=== PATIENT | male | born 1945 | race Caucasian/White ===

== ENCOUNTER 2017-05-17 02:03 | Inpatient (IN) | payer MEDICARE, BC ==
[2017-05-17 02:38] LABS: #Basophils 0.1 thou/uL (0.0-0.2); #Eosinphils 0.4 thou/uL (0.0-0.7); #Lymphocytes 2.6 thou/uL (1.20-3.40); #Monocytes 0.8 thou/uL (0.11-0.59); #Neutrophils 6.9 thou/uL (1.40-6.50); %Basophils 0.7 % (0.0-1.0); %Eosinophils 3.6 % (0.0-10.0); %Lymphocytes 24.4 % (21.0-51.0); %Monocytes 7.5 % (0.0-10.0); Hematocrit 48.5 % (42.0-52.0); Mean Platelet Volume 8.7 fL (7.4-10.4); Red Blood Cell (RBC) Count 5.26 mill/uL (4.70-6.10); White Blood Cell (WBC) Count 10.8 thou/uL (4.8-10.8)
[2017-05-17 02:48] LABS: ALT (SGPT) 18 U/L (8-55); AST (SGOT) 14 U/L (5-34); Alkaline Phosphatase 74 U/L (40-150); Anion Gap 13 mmol/L (10-20); BUN (Urea Nitrogen) 21 mg/dL (8.4-25.7); Bilirubin, Total 0.3 mg/dL (0.2-1.2); Calc. Creatinine Clearance 0 mL/min (70-130); Carbon Dioxide 23 mmol/L (23-31); Chloride 106 mmol/L (98-107); Estimated GFR-MDRD 58; Globulin 3.2 g/dL (2.4-3.5); Protein, Total 7.4 g/dL (5.8-8.1)
[2017-05-17 02:52] LABS: PTT 27.2 SEC (22.9-36.1); Prothrombin Time 12.7 SEC (12.0-14.7); Troponin I Less than 0.010 ng/mL (< 0.028)
[2017-05-17 03:08] LABS: Acetaminophen Less than 6.0 mcg/mL (10.0-30.0); Salicylate Less than 8.0 mg/dL (15.0-30.0)
[2017-05-17 03:36] LABS: Amphetamine Not Detected (NotDetected); Methadone Not Detected (NotDetected); Methamphetamine Not Detected (NotDetected)
[2017-05-17 03:37] LABS: Bilirubin Negative (Negative); Blood, Urine Negative (Negative); Glucose, Urine (Dipstick) Negative (Negative); Ketone, Urine Negative (Negative); Nitrite Negative (Negative); Protein, Urine (Dipstick) Negative (Neg-Trace); Urobilinogen 0.2 mg/dL (0.2-1.0)
[2017-05-17] MEDS ORDERED: Labetalol HCl 100 MG/20 ML VIAL SLOW IVP PRN (04:17)
[2017-05-17] MEDS: Sodium Chloride 0.9% 1,000 ML IV SCH ×2 (05:11→15:42)
[2017-05-17 05:44] LABS: Troponin I Less than 0.010 ng/mL (< 0.028)
--- NOTE | 2017-05-17 07:51 | CT ---
PRELIMINARY REPORT/[facility]/EMERGENCY AFTER HOURS PROCEDURE: Addendum created by Miguel Rivas MD on 05/17/2017 2:27 AM Central Time ([place]) Findings discussed with Nilesh Zapata MD at time of interpretation. Initial Report created on 05/17/2017 2:20 AM Central Time ([place]) EXAM: CT Head Without Intravenous Contrast EXAM DATE/TIME: Exam ordered 05/17/2017 2:06 AM CLINICAL HISTORY: 72 years old, male; Signs and symptoms; Altered mental status/memory loss; Confusion or disorientati on; Patient HX: Stroke alert TECHNIQUE: Axial computed tomography images of the head/brain without intravenous contrast. COMPARISON: No relevant prior studies available. FINDINGS: Brain: Mild generalized volume loss of the brain. No hemorrhage. No significant white matter disease. Ventricles: Unremarkable. No ventriculomegaly. Bones/joints: Unremarkable. No acute fracture. Soft tissues: Unremarkable. Sinuses: Unremarkable as visualized. No acute sinusitis. Mastoid air cells: Unremarkable as visualized. No mastoid effusion. Other findings: There is a small well-demarcated area of decreased attenuation in in the left pariet aloccipital region. IMPRESSION: There is a small well-demarcated area of decreased attenuation in in the left parietal-occipital reg ion, very suspicious for early subacute infarction. In the absence of prior studies, a small area of gliosis/encephalomalacia is not excluded but is less likely. Thank you for allowing us to participate in the care of your patient. Dictated and Authenticated by: Miguel Rivas MD 05/17/2017 2:20 AM Central Time ([place]) FINAL REPORT EMERGENT AFTER HOURS CT HEAD WITHOUT IV CONTRAST: 05/17/2017 HISTORY: Right-sided weakness with no appetizer packer strength. Slurred speech and confusion. COMPARISON: None available. IMPRESSION: 1. Well-demarcated area of decreased attenuation in the left parietal-occipital lobe likely related to an area of infarction which may be more subacute in nature. 2. No intraparenchymal or extraaxial hemorrhage. 3. Findings are in agreement with preliminary report by [facility]. POS: [facility]
[2017-05-17] MEDS ORDERED: Aspirin 81 mg Enteric Coated Tablet PO SCH (09:00)
--- NOTE | 2017-05-17 09:33 | HP ---
DATE OF ADMISSION: 05/17/2017 ADMITTING PHYSICIAN: Dr. Christopher Nelson. PRIMARY CARE PHYSICIAN: Seen at [facility]. CHIEF COMPLAINT: Altered mental status, motor deficit, slurred speech, right-sided weakness. HISTORY OF PRESENT ILLNESS: Patient is a 72-year-old gentleman, brought in to the ED after his noticed that he became more agitated beginning last Sunday. Over the course of the weekend this week, he became more irritable, had problems with speech, and complained about visual problems. Ton ight, the patient and his family reported that he had increased right-sided weakness with no diplomatic officer st rength. EMS reports that there was no facial droop in the field, but they did notice slurred speech and confusion. Also, history of new onset atrial fibrillation in the field. PAST MEDICAL HISTORY: Tobacco user, lung cancer. PAST SURGICAL HISTORY: Left lung partial resection due to the cancer and reportedly carotid endarte rectomy. SOCIAL HISTORY: He is a current smoker. Denies alcohol. Lives with his . FAMILY HISTORY: Reviewed and noncontributory. HOME MEDICATIONS: None. DRUG ALLERGIES: No known drug allergies. REVIEW OF SYSTEMS: The following complete review of systems was negative, unless otherwise mentione d in the HPI or below: Constitutional: Weight loss or gain, sense of well-being, ability to conduc t usual activities, exercise tolerance. Skin/Breast: Rash, itching, changes in hair growth or loss , nail changes, breast lumps, tenderness, swelling, nipple discharge. Eyes: Vision, double vision, tearing, blind spots, pain. ENT/Mouth: Headaches (location, time of onset, duration, precipitatin g factors), vertigo, lightheadedness, injury. Vision, double vision, tearing, blind spots, pain, nos e bleeding, colds, obstruction, discharge, dental difficulties, gingival bleeding, dentures, neck st iffness, pain, tenderness, masses in thyroid or other areas. Cardiovascular: Precordial pain, subs ternal distress, palpitations, syncope, dyspnea on exertion, orthopnea, nocturnal paroxysmal dyspnea , edema, cyanosis, hypertension, heart murmurs, varicosities, phlebitis, claudication. Respiratory: Pain, shortness of breath, wheezing, stridor, cough, hemoptysis, fever or night sweats. Gastroint estinal: Poor appetite, dysphagia, indigestion, abdominal pain, heartburn, eructation, nausea, vomi ting, hematemesis, jaundice, constipation, or diarrhea, abnormal stools (emely-colored, tarry, bloody , greasy, foul smelling), flatulence, hemorrhoids, recent changes in bowel habits. Genitourinary: Urgency, frequency, dysuria, nocturia, hematuria, polyuria, oliguria, unusual (or change in) color o f urine, stones, hesitancy, change in size of stream, dribbling, acute retention or incontinence, li david, potency. Musculoskeletal: Pain, swelling, redness or heat of muscles or joints, limitation, of motion, muscular weakness, atrophy, cramps. Neurologic/Psychiatric: Convulsions, paralyses, rashida mor, incoordination, parasthesias, difficulties with memory of speech, sensory or motor disturbances , or muscular coordination (ataxia, tremor), emotional problems, anxiety, depression, previous psych iatric care, unusual perceptions, hallucinations. Allergy/Immunologic: Skin rash, anemia, bleeding tendency, polydipsia, polyuria, intolerance to heat or cold. PHYSICAL EXAMINATION: VITAL SIGNS: Temperature measured at 97.9, blood pressure 176/88, pulse 92, respirations 17, sattin g 94% on room air. GENERAL: He is in no acute distress, oriented to person and time. Responds to verbal stimuli, but obviously confused. HEAD: Normocephalic, atraumatic. EYES: PERRL. Extraocular muscles appear to be intact. No nystagmus present. ENT: Oral mucosa pink, moist. Pharynx exam, normal. External ear exam, normal. NECK EXAM: Normal range of motion, full; supple. RESPIRATORY EXAM: Clear to auscultation, no rhonchi. CARDIOVASCULAR EXAM: The patient is tachycardic. Normal S1, S2. ABDOMINAL EXAM: Nontender, nondistended. EXTREMITIES: No clubbing, cyanosis. There is trace edema, left greater than right. NEUROLOGICAL EXAM: Decreased range of motion in right extremities. Patient with expressive aphasia . LABORATORY AND IMAGES: Brain CT shows a small demarcated area of decreased attenuation in the left parietooccipital region, suspicious for early subacute infarction as well as small area of gliosis a nd encephalomalacia. CTA of the osage of [place] shows diffuse stenosis with severe focal stenosis in the proximal left posterior cerebral artery. CTA of the neck shows proximal occlusion of the lef t common carotid, occluded left internal carotid artery. Urinalysis yellow, clear, negative for lam kocytes, negative for nitrites. Urine drug screen negative for any drug detection. Acetaminophen l evel less than 6. Salicylate level less than 8. PT 12.7, INR 1.0, PTT 27.2. CMP: Sodium 138, pot assium 4.2, chloride 106, carbon dioxide 23, BUN 21, creatinine 1.22, glucose 158, AST 14, ALT 18, a lbumin 4.2. CBC: White count 10.8, hemoglobin 15.9, hematocrit 48.5, platelets 151. ASSESSMENT AND PLAN: 1. Subacute left occipital ischemic infarction. 2. Hypertension. 3. Tobacco abuse. PLAN: The patient will be admitted to CCU where he will be monitored closely. Neurology and Neuros urgery both had been consulted through the emergency room physician. Dr. Ferreira suggests that the pat ient receive echo and carotid Dopplers and then Vascular Surgery if necessary will be consulted. We will allow permissive hypertension and maintain supportive therapy as needed.
--- NOTE | 2017-05-17 09:52 | CT ---
PRELIMINARY REPORT/[facility]/EMERGENCY AFTER HOURS PROCEDURE: EXAM: CT Angiography Head With Intravenous Contrast CLINICAL HISTORY: 72 years old, male; Speech disturbance; Slurred speech; AMS, stroke alert TECHNIQUE: Axial computed tomographic angiography images of the head with intravenous contrast using CT angiogr aphy protocol. Coronal and sagittal reformatted images were created and reviewed. CONTRAST: 100 mL of ISOVUE administered intravenously. COMPARISON: No relevant prior studies available. FINDINGS: Right internal carotid artery: No acute findings. Intracranial segment is patent with no significant stenosis. No aneurysm. Right anterior cerebral artery: Patent anterior communicating artery. No occlusion or significant st enosis. No aneurysm. Right middle cerebral artery: Unremarkable. No occlusion or significant stenosis. No aneurysm. Right posterior cerebral artery: Unremarkable. No occlusion or significant stenosis. No aneurysm. Right vertebral artery: Unremarkable as visualized. Left internal carotid artery: Portions of the intracranial left internal carotid artery are occluded with mild cephalad retrograde filling. No aneurysm. Left anterior cerebral artery: See above. Left middle cerebral artery: Patent left middle cerebral artery. Branches of the left middle cerebra l artery are somewhat reduced in caliber compared to corresponding right side. No occlusion or signi ficant stenosis. No aneurysm. Left posterior cerebral artery: Severe focal stenosis involving the proximal left posterior cerebral artery. No aneurysm. Left vertebral artery: Unremarkable as visualized. Basilar artery: Unremarkable. No occlusion or significant stenosis. No aneurysm. Brain: Likely recent infarct in the left occipital lobe region. No hemorrhage. Sinuses: Partial right frontal and ethmoid sinusitis. IMPRESSION: 1. The left cerebral circulation is supplied via a patent anterior communicating artery from the rig ht sided circulation. Branches of the left middle cerebral artery are somewhat reduced in caliber co mpared to the corresponding right side. 2. Severe focal stenosis involving the proximal left posterior cerebral artery. 3. Likely recent infarct in the left occipital lobe region. 4. THIS REPORT CONTAINS FINDINGS THAT MAY BE CRITICAL TO PATIENT CARE. The findings were verbally communicated via telephone conference with Nilesh Zapata at 2:44 AM CDT on 05/17/2017. The findings were acknowledged and understood. EXAM: CT Angiography Neck With Intravenous Contrast CLINICAL HISTORY: 72 years old, male; Speech disturbance; Slurred speech; AMS, stroke alert TECHNIQUE: Axial computed tomographic angiography images of the neck with intravenous contrast using CT angiogr aphy protocol. Coronal and sagittal reformatted images were created and reviewed. CONTRAST: 100 mL of ISOVUE administered intravenously. COMPARISON: CT head without contrast 05/17/2017 FINDINGS: VASCULATURE: Right common carotid artery: Unremarkable. No significant stenosis. No dissection or occlusion. Right internal carotid artery: Unremarkable. Extracranial segment is patent with no significant sten osis. No dissection or occlusion. Right external carotid artery: Unremarkable. No occlusion. Right vertebral artery: Unremarkable. No significant stenosis. No dissection or occlusion. Left common carotid artery: Proximal occlusion of the left common carotid artery. Left internal carotid artery: Occluded left internal carotid artery. Left external carotid artery: Unremarkable. No occlusion. Left vertebral artery: Unremarkable. No significant stenosis. No dissection or occlusion. NECK: Bones/joints: No acute fracture. No dislocation. Soft tissues: Surgical keren within the left neck. No mass. CAROTID STENOSIS REFERENCE USING NASCET CRITERIA: % ICA stenosis = (1 - narrowest ICA diameter/diameter of distal cervical ICA) x 100. Mild - <50% stenosis. Moderate - 50-69% stenosis. Severe - 70-94% stenosis. Near occlusion - 95-99% stenosis. Occluded - 100% stenosis. IMPRESSION: 1. Proximal occlusion of the left common carotid artery. 2. Surgical keren within the left neck. 3. Occluded left internal carotid artery. 4. THIS REPORT CONTAINS FINDINGS THAT MAY BE CRITICAL TO PATIENT CARE. The findings were verbally communicated via telephone conference with Nilesh Zapata at 2:44 AM CDT on 05/17/2017. The findings were acknowledged and understood. Thank you for allowing us to participate in the care of your patient. Dictated and Authenticated by: Tobias Trivedi MD 05/17/2017 2:49 AM Central Time ([place] \[place]) FINAL REPORT EMERGENT AFTER HOURS CT ANGIOGRAM BRAIN WITH IV CONTRAST AND 3D RECONSTRUCTIONS EMERGENT AFTER HOURS CT ANGIOGRAM NECK WITH IV CONTRAST AND 3D RECONSTRUCTIONS: 05/17/2017 HISTORY: Right-sided weakness and no specimen boss strength. Slurred speech and confusion. Non-contrast CT head demo nstrates low-density area in the left parietal-occipital region. IMPRESSION: 1. Occlusion of the left common carotid artery as well as left internal carotid artery. 2. Dense atherosclerotic vascular calcifications involving the right carotid artery bifurcation with mild narrowing (less than 50% according to NASCET criteria). 3. Intracranial left ICA is occluded with decreased caliber of the left middle cerebral artery branc hes with flow in the left cerebral circulation via a patent left anterior communicating artery. 4. Severe focal narrowing involving the proximal left posterior cerebral artery. 5. Infarction in the left parietal-occipital lobe. The exact age is indeterminate but likely more r ecent in origin and possibly subacute in nature. 6. Findings are in agreement with the preliminary report by [facility]. POS: [facility]
--- NOTE | 2017-05-17 10:27 | PDOC.PN ---
- Subjective Encounter Start Date: 05/17/17 Encounter Start Time: 10:25 Patient seen at bedside. No overnight events, still with significant expressive aphasia - Objective MAR Reviewed: Yes Vital Signs & Weight: Vital Signs (12 hours) Temp Pulse Pulse Pulse Resp BP BP 05/17/17 09:30 92 93 201/67 H 05/17/17 08:00 97.9 F 82 22 H 05/17/17 05:18 82 225/115 H 05/17/17 05:00 98.3 F 05/17/17 04:18 98.3 F 86 13 BP BP Pulse Ox Pulse Ox Pulse Ox 05/17/17 09:30 193/78 H 98 97 05/17/17 08:00 95 05/17/17 05:18 05/17/17 05:00 05/17/17 04:18 86/82 L 97 Weight Admit Weight 230 lb 9.656 oz Weight 230 lb 9.656 oz Most Recent Monitor Data Heart Rate from ECG 83 NIBP 175/77 NIBP BP-Mean 140 Respiration from ECG 22 SpO2 96 I&O: 05/16/17 05/17/17 05/18/17 06:59 06:59 06:59 Intake Total 0 Output Total 60 235 Balance -60 -235 Result Diagrams: 05/17/17 02:08 05/17/17 02:08 Phys Exam - Physical Examination Constitutional: NAD HEENT: moist MMs Respiratory: clear to auscultation bilateral Cardiovascular: RRR Gastrointestinal: soft Musculoskeletal: pulses present RUE and RLE paresis, positive facial assymetry Deviation from normal: Awake,alert, unable to assess orientation Dx/Plan (1) Idiopathic ischemic cerebrovascular accident (CVA) in adult Code(s): I63.9 - CEREBRAL INFARCTION, UNSPECIFIED Status: Acute (2) Hyperlipidemia Code(s): E78.5 - HYPERLIPIDEMIA, UNSPECIFIED Status: Chronic (3) Hypertension Code(s): I10 - ESSENTIAL (PRIMARY) HYPERTENSION Status: Chronic - Plan cont current plan of care, PT/OT, DVT proph w/SCDs * ASA/Statin. * Speech therapy evaluation * BP control * Await neurology evaluation for further input * Neurochecks * PT/OT * Transfer to stroke
[2017-05-17 10:52] LABS: Troponin I Less than 0.010 ng/mL (< 0.028)
[2017-05-17] MEDS ORDERED: ISOVUE-370 76%-LOCM 1 ML ONE (16:15)
--- NOTE | 2017-05-17 21:36 | CON ---
DATE OF CONSULTATION: 05/17/2017 NEUROLOGY CONSULTATION CONSULTING PHYSICIAN: Hospitalist. IMPRESSION: 1. 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 2. Tobacco use. PLAN: 1. Aspirin 325 per day. 2. Statin as necessary to address cholesterol levels. 3. Carotid ultrasound. 4. Echocardiogram. 5. PT and OT evaluations. 6. Possible need for PEG tube placement. 7. Possible rehabilitation transfer. HISTORY OF PRESENT ILLNESS: Mr. Shelley is a 72-year-old man with a past history of carotid stenosis, status post left CEA, diabetes improved after weight loss, who came in with right-sided weakness an d difficulty speaking. He was administered TPA and admitted to the intensive care unit. He has now been transferred out to the stroke unit for further care. He has failed to show a significant impr ovement in his right-sided weakness or expressive aphasia. There is no past history of TIA. PAST MEDICAL HISTORY: Diabetes. ALLERGIES: None. SOCIAL HISTORY: Heavy tobacco use. FAMILY HISTORY: Noncontributory. REVIEW OF SYSTEMS: Not obtainable. PHYSICAL EXAMINATION: GENERAL: A somewhat overweight elderly man lying in bed, in no acute distress. HEENT: Pupils equal and reactive. Conjunctivae clear. Eye movements appear to be intact. NECK: Supple. Left CEA scar is present. EXTREMITIES: No cyanosis noted. NEUROLOGIC: Appears to be awake and attends to me visually. He had some mumbling speech that for t he most part was incoherent. He only was able to follow the command close her eyes and otherwise, w as unable to comprehend what I was asking him to do. There is some slight right facial droop presen t. Motor exam shows a dense right upper extremity paralysis with loss of tone. The tone in the rig ht leg is a bit better and movement is also a bit better in comparison. Plantar responses are upgoi ng on the right and downgoing on the left. No abnormal movements were seen. Gait was not testable. LABORATORY DATA AND IMAGING STUDIES: CT scan of the brain initially showed an old left occipital ar ea of infarct. CTA showed diminished flow in the left MCA with probable occlusion of the ICA. His lab work was otherwise unremarkable. EKG showed sinus rhythm. SUMMARY: This is an elderly man with a history of vascular disease, status post a left carotid enda rterectomy, who developed occlusion in left internal carotid artery likely secondary to thrombosis. We can proceed with the remainder of a stroke workup and probable transfer to rehab.
[2017-05-17] MEDS: Atorvastatin Calcium 10 MG TAB PO SCH (23:08)
[2017-05-18] MEDS: Sodium Chloride 0.9% 1,000 ML IV SCH ×3 (00:52→21:34)
[2017-05-18] MEDS: Aspirin 300 MG Suppository PR SCH (09:12)
[2017-05-18] MEDS ORDERED: HumaLOG 300 UNITS/3 ML VIAL SC PRN (10:15)
[2017-05-18] MEDS ORDERED: Dextrose 5% in Water 1,000 ML IV PRN (10:15)
[2017-05-18] MEDS ORDERED: Dextrose 50% Abboject 50 ML SYRINGE SLOW IVP PRN (10:15)
--- NOTE | 2017-05-18 10:19 | PDOC.PN ---
- Subjective Encounter Start Date: 05/18/17 Encounter Start Time: 10:17 aphasic no n/v no f/c - Objective MAR Reviewed: Yes Vital Signs & Weight: Vital Signs (12 hours) Temp Pulse Resp BP Pulse Ox 05/18/17 07:18 98.3 F 89 20 154/69 H 91 L 05/18/17 03:51 99.2 F 96 24 H 145/64 H 98 05/17/17 23:26 98.2 F 101 H 20 181/81 H 96 Weight Admit Weight 230 lb 9.656 oz Weight 231 lb 6.4 oz Most Recent Monitor Data Heart Rate from ECG 92 NIBP 153/76 NIBP BP-Mean 93 Respiration from ECG 19 SpO2 96 I&O: 05/17/17 05/18/17 05/19/17 06:59 06:59 06:59 Intake Total 0 350 Output Total 60 2490 50 Balance -60 -2140 -50 Result Diagrams: 05/17/17 02:08 05/17/17 02:08 Phys Exam - Physical Examination Constitutional: NAD HEENT: PERRLA Neck: no JVD Respiratory: no rales Cardiovascular: no significant murmur Gastrointestinal: non-tender Musculoskeletal: pulses present aphasic, awake, rt side hemiparesis Dx/Plan (1) Idiopathic ischemic cerebrovascular accident (CVA) in adult Code(s): I63.9 - CEREBRAL INFARCTION, UNSPECIFIED Status: Acute (2) Diabetes mellitus Code(s): E11.9 - TYPE 2 DIABETES MELLITUS WITHOUT COMPLICATIONS Status: Acute (3) Tobacco use Code(s): Z72.0 - TOBACCO USE Status: Acute (4) Dysphagia Code(s): R13.10 - DYSPHAGIA, UNSPECIFIED Status: Acute (5) Hyperlipidemia Code(s): E78.5 - HYPERLIPIDEMIA, UNSPECIFIED Status: Chronic (6) Hypertension Code(s): I10 - ESSENTIAL (PRIMARY) HYPERTENSION Status: Chronic - Plan * pt/ot, placement * peg tube if needed * f/u speech eval * ef- 60%
[2017-05-18] MEDS ORDERED: Amiodarone HCl 150 MG, Admixture Fee 1 EACH in Dextrose 5% in Water 100 ML IVPB SCH ×3 (11:45)
[2017-05-18] MEDS: Amiodarone HCl 450 MG in Dextrose 5% in Water 250 ML IVPB SCH ×4 (11:57→21:33)
[2017-05-18 12:15] LABS: Hemoglobin A1c 6.8 % (4.0-6.0)
[2017-05-18 12:19] LABS: ALT (SGPT) 14 U/L (8-55); AST (SGOT) 17 U/L (5-34); Alkaline Phosphatase 77 U/L (40-150); Bilirubin, Direct 0.3 mg/dL (0.1-0.3); Magnesium 1.9 mg/dL (1.6-2.6); Protein, Total 7.4 g/dL (5.8-8.1)
--- NOTE | 2017-05-18 13:21 | CON ---
DATE OF CONSULTATION: 05/18/2017 HISTORY OF PRESENT ILLNESS: The patient is an unfortunate 72-year-old gentleman who suffered a cerebrovascular accident and is unable to give any coherent history. The patient has a history of atrial fibrillation. He has previously under placement of a Watchman device. The patient apparently was in his usual state of health when he presented with an acute loss of consciousness. The patient was admitted to the ICU with a cerebrovascular accident. The patient was initially in a normal rhythm, but developed recurrent atrial fibrillation. PAST MEDICAL HISTORY: 1. Atrial fibrillation. 2. Hypertension. 3. Diabetes mellitus. 4. History of tobacco abuse. PAST SURGICAL HISTORY: He has had apparent lung surgery for lung carcinoma. SOCIAL HISTORY: Not obtainable. FAMILY HISTORY: Not obtainable. MEDICATIONS: Not obtainable. ALLERGIES: No known drug allergies. REVIEW OF SYSTEMS: Not obtainable. PHYSICAL EXAMINATION: GENERAL: This is an obese gentleman who was response to pain, alert and oriented x0. VITAL SIGNS: Blood pressure 149/89. NECK: No jugular venous distention. LUNGS: Clear to auscultation. HEART: Regular rate and rhythm, normal S1, S2. ABDOMEN: Distended. EXTREMITIES: Showed trace edema. NEUROLOGIC: Alert and oriented x0. VASCULAR: Radial pulses 2+. LABORATORY DATA: Sodium 138, potassium 4.2, chloride 106, bicarbonate 23, BUN 21, creatinine is 1.2, glucose 158, troponin less than 0.01. IMPRESSION: 1. Cerebrovascular accident. 2. Paroxysmal atrial fibrillation. 3. History of tobacco abuse. This gentleman has suffered a large cerebrovascular accident. The patient is going in and out of atrial fibrillation. We will place the patient on amiodarone to maintain sinus rhythm. It will be eventually recommended taken an anticoagulant to lower his risk of recurrent cerebrovascular accident. We will follow this patient with you throughout his hospitalization. ALBERTA
--- NOTE | 2017-05-18 16:15 | EKG ---
Test Reason : Blood Pressure : / mmHG Vent. Rate : 102 BPM Atrial Rate : 214 BPM P-R Int : 000 ms QRS Dur : 082 ms QT Int : 350 ms P-R-T Axes : 000 014 037 degrees QTc Int : 456 ms Atrial fibrillation with rapid ventricular response Abnormal ECG When compared with ECG of 17-MAY-2017 02:32, (Unconfirmed) Atrial fibrillation has replaced Sinus rhythm Confirmed by DR. Bronson FRIED ([id number]) on 05/18/2017 4:15:11 PM Referred By: DANILO Confirmed By:DR. Bronson FRIED
[2017-05-18] MEDS: Atorvastatin Calcium 10 MG TAB PO SCH (20:01)
[2017-05-19] MEDS: Sodium Chloride 0.9% 1,000 ML IV SCH ×2 (05:46→16:31)
[2017-05-19] MEDS ORDERED: FLU VACC TS2017-18 (>65YR) 0.5 ML SYRINGE IM ONE (09:00)
[2017-05-19] MEDS: Aspirin 300 MG Suppository PR SCH (09:30)
--- NOTE | 2017-05-19 14:38 | PDOC.PN ---
- Subjective Encounter Start Date: 05/19/17 Encounter Start Time: 14:36 did well with puree diet no n/v still aphasic no f/c - Objective MAR Reviewed: Yes Vital Signs & Weight: Vital Signs (12 hours) Temp Pulse Pulse Pulse Resp BP BP 05/19/17 11:40 98.8 F 92 14 05/19/17 08:57 106 H 67 181/97 H 198/92 H 05/19/17 08:00 97.9 F 77 20 05/19/17 03:42 98.7 F 96 18 BP Pulse Ox 05/19/17 11:40 137/67 95 05/19/17 08:57 05/19/17 08:00 190/85 H 95 05/19/17 03:42 201/91 H 97 Weight Admit Weight 230 lb 9.656 oz Weight 231 lb 6.4 oz Most Recent Monitor Data Heart Rate from ECG 92 NIBP 153/76 NIBP BP-Mean 93 Respiration from ECG 19 SpO2 96 I&O: 05/18/17 05/19/17 05/20/17 06:59 06:59 05:59 Intake Total 350 2800 Output Total 2490 50 Balance -2140 2750 Result Diagrams: 05/17/17 02:08 05/18/17 11:18 Additional Labs: Accuchecks 05/19/17 05/18/17 05:30 16:42 POC Glucose 172 H 138 H Phys Exam - Physical Examination awake HEENT: PERRLA Neck: no JVD Respiratory: no wheezing Cardiovascular: irregular Gastrointestinal: soft, non-tender Musculoskeletal: pulses present rt side hemiparesis, aphasia- mumbling Dx/Plan (1) Idiopathic ischemic cerebrovascular accident (CVA) in adult Code(s): I63.9 - CEREBRAL INFARCTION, UNSPECIFIED Status: Acute (2) Diabetes mellitus Code(s): E11.9 - TYPE 2 DIABETES MELLITUS WITHOUT COMPLICATIONS Status: Acute (3) Tobacco use Code(s): Z72.0 - TOBACCO USE Status: Acute (4) Dysphagia Code(s): R13.10 - DYSPHAGIA, UNSPECIFIED Status: Acute (5) Hyperlipidemia Code(s): E78.5 - HYPERLIPIDEMIA, UNSPECIFIED Status: Chronic (6) Hypertension Code(s): I10 - ESSENTIAL (PRIMARY) HYPERTENSION Status: Chronic (7) Afib Code(s): I48.91 - UNSPECIFIED ATRIAL FIBRILLATION Status: Acute - Plan * industrial laborer to asses caloric need * peg tube if fails * f/u with neuro about anticoag * card input appreciated
[2017-05-19] MEDS: Amiodarone HCl 450 MG in Dextrose 5% in Water 250 ML IVPB SCH ×2 (18:14)
--- NOTE | 2017-05-19 20:12 | EKG ---
Test Reason : AMS Blood Pressure : / mmHG Vent. Rate : 088 BPM Atrial Rate : 088 BPM P-R Int : 178 ms QRS Dur : 080 ms QT Int : 380 ms P-R-T Axes : 049 018 052 degrees QTc Int : 459 ms Normal sinus rhythm Cannot rule out Anterior infarct , age undetermined Abnormal ECG Confirmed by BETY THOMAS D.O. ([id number]), book editor GARDENIA MCKEON ([id number]) on 05/19/2017 8:11:58 PM Referred By: Confirmed By:BETY THOMAS D.O.
[2017-05-19] MEDS: Atorvastatin Calcium 10 MG TAB PO SCH (20:22)
--- NOTE | 2017-05-19 23:43 | PRG ---
DATE OF SERVICE: 05/19/2017 Mr. Shelley is a pleasant 72-year-old male who presented with an acute onset of aphasia and right-sided weakness. He is status post IV TPA. He was initially started on aspirin for secondary stroke prevention. He had an episode of atrial fibrillation for which I am being asked to provide r ecommendations as to patient is okay to be started on anticoagulation therapy. On my evaluation, th e patient is noted to be globally aphasic with right-sided weakness. I have reviewed his CT head wi thout contrast, which was done on 05/17/2017, which showed small left cerebellar region hyperdensity suggestive of old infarct as well as loss of katz white differentiation in the left MCA territory i n frontoparietal region. In my opinion, the patient is okay to be started on anticoagulation therap y. I would defer that the anticoagulant of choice to Cardiology. There are no further recommendati ons at this time. Please call us if there are any questions or concerns.
[2017-05-20] MEDS: Sodium Chloride 0.9% 1,000 ML IV SCH (02:24)
[2017-05-20] MEDS ORDERED: Metoprolol Tartrate 25 MG TAB PO SCH (09:00)
--- NOTE | 2017-05-20 09:13 | PDOC.PN ---
- Subjective Encounter Start Date: 05/20/17 Encounter Start Time: 09:10 more alert and responding to simple commands crying and is depressed no f/c no n/v - Objective MAR Reviewed: Yes Vital Signs & Weight: Vital Signs (12 hours) Temp Pulse Resp BP Pulse Ox 05/20/17 08:00 97.9 F 85 18 158/90 H 95 05/20/17 03:29 98.6 F 106 H 24 H 194/92 H 96 05/20/17 00:00 98.6 F 114 H 24 H 147/93 H 95 Weight Admit Weight 230 lb 9.656 oz Weight 229 lb 12.8 oz Most Recent Monitor Data Heart Rate from ECG 92 NIBP 153/76 NIBP BP-Mean 93 Respiration from ECG 19 SpO2 96 I&O: 05/19/17 05/20/17 05/21/17 07:59 06:59 06:59 Intake Total Balance Result Diagrams: 05/17/17 02:08 05/18/17 11:18 Additional Labs: Accuchecks 05/19/17 17:12 POC Glucose 142 H Phys Exam - Physical Examination Constitutional: NAD HEENT: PERRLA Neck: no JVD Respiratory: no wheezing Cardiovascular: no significant murmur, irregular Gastrointestinal: non-tender Musculoskeletal: pulses present global aphasia and rt side hemiparesis Dx/Plan (1) Idiopathic ischemic cerebrovascular accident (CVA) in adult Code(s): I63.9 - CEREBRAL INFARCTION, UNSPECIFIED Status: Acute (2) Diabetes mellitus Code(s): E11.9 - TYPE 2 DIABETES MELLITUS WITHOUT COMPLICATIONS Status: Acute (3) Tobacco use Code(s): Z72.0 - TOBACCO USE Status: Acute (4) Dysphagia Code(s): R13.10 - DYSPHAGIA, UNSPECIFIED Status: Acute (5) Hyperlipidemia Code(s): E78.5 - HYPERLIPIDEMIA, UNSPECIFIED Status: Chronic (6) Hypertension Code(s): I10 - ESSENTIAL (PRIMARY) HYPERTENSION Status: Chronic (7) Afib Code(s): I48.91 - UNSPECIFIED ATRIAL FIBRILLATION Status: Acute - Plan * cont amiodaron * start cardizem po * start lovenox. * d/w with cardiology about oral anticoag * neuro input appreciated * pt eating 25% of meal- monitor to see if he needs peg tube * placement * cont pt/ot
[2017-05-20 09:15] LABS: Anion Gap 17 mmol/L (10-20); BUN (Urea Nitrogen) 18 mg/dL (8.4-25.7); Calc. Creatinine Clearance 96 mL/min (70-130); Calcium 8.9 mg/dL (7.8-10.44); Carbon Dioxide 17 mmol/L (23-31); Chloride 105 mmol/L (98-107); Estimated GFR-MDRD 71
[2017-05-20] MEDS: Enoxaparin Sodium 100 MG/ML SYRINGE SC SCH ×2 (09:31→21:27)
[2017-05-20] MEDS: Aspirin 81 mg Enteric Coated Tablet PO SCH (09:31)
[2017-05-20] MEDS: Amiodarone HCl 450 MG in Dextrose 5% in Water 250 ML IVPB SCH ×2 (10:20)
[2017-05-20] MEDS: Atorvastatin Calcium 40 MG TAB PO SCH (21:27)
[2017-05-21] MEDS: Amiodarone HCl 450 MG in Dextrose 5% in Water 250 ML IVPB SCH ×4 (02:24→17:58)
[2017-05-21 05:38] LABS: #Basophils 0.1 thou/uL (0.0-0.2); #Eosinphils 0.2 thou/uL (0.0-0.7); #Monocytes 1.3 thou/uL (0.11-0.59); #Neutrophils 10.9 thou/uL (1.40-6.50); %Basophils 0.5 % (0.0-1.0); %Eosinophils 1.2 % (0.0-10.0); %Monocytes 8.8 % (0.0-10.0); Hematocrit 48.9 % (42.0-52.0); Mean Platelet Volume 9.1 fL (7.4-10.4); Red Blood Cell (RBC) Count 5.33 mill/uL (4.70-6.10); White Blood Cell (WBC) Count 14.5 thou/uL (4.8-10.8)
[2017-05-21] MEDS: Aspirin 81 mg Enteric Coated Tablet PO SCH (09:02)
[2017-05-21] MEDS: Enoxaparin Sodium 100 MG/ML SYRINGE SC SCH ×2 (09:02→19:56)
--- NOTE | 2017-05-21 10:55 | PDOC.PN ---
- Subjective Encounter Start Date: 05/21/17 Encounter Start Time: 10:53 Patient seen and examined. No new complaints. No overnight events - Objective MAR Reviewed: Yes Vital Signs & Weight: Vital Signs (12 hours) Temp Pulse Resp BP Pulse Ox 05/21/17 08:00 99 F 87 20 93 L 05/21/17 07:15 99 F 87 20 157/70 H 94 L 05/21/17 03:23 98.7 F 99 28 H 162/73 H 94 L 05/20/17 23:23 100.1 F H 69 24 H 173/84 H 97 Weight Admit Weight 230 lb 9.656 oz Weight 231 lb 1.6 oz Most Recent Monitor Data Heart Rate from ECG 92 NIBP 153/76 NIBP BP-Mean 93 Respiration from ECG 19 SpO2 96 I&O: 05/20/17 05/21/17 05/22/17 06:59 06:59 06:59 Intake Total 200 Balance 200 Result Diagrams: 05/21/17 04:58 05/20/17 08:48 Additional Labs: Accuchecks 05/21/17 05/21/17 05/20/17 05:28 01:30 17:09 POC Glucose 154 H 152 H 134 H 05/20/17 06:51 POC Glucose 142 H Phys Exam - Physical Examination Constitutional: NAD HEENT: PERRLA Neck: no JVD Respiratory: no wheezing Cardiovascular: irregular Gastrointestinal: non-tender, no distention Musculoskeletal: pulses present rt side hemiparesis, aphasia, awake Dx/Plan (1) Idiopathic ischemic cerebrovascular accident (CVA) in adult Code(s): I63.9 - CEREBRAL INFARCTION, UNSPECIFIED Status: Acute (2) Diabetes mellitus Code(s): E11.9 - TYPE 2 DIABETES MELLITUS WITHOUT COMPLICATIONS Status: Acute (3) Tobacco use Code(s): Z72.0 - TOBACCO USE Status: Acute (4) Dysphagia Code(s): R13.10 - DYSPHAGIA, UNSPECIFIED Status: Acute (5) Hyperlipidemia Code(s): E78.5 - HYPERLIPIDEMIA, UNSPECIFIED Status: Chronic (6) Hypertension Code(s): I10 - ESSENTIAL (PRIMARY) HYPERTENSION Status: Chronic (7) Afib Code(s): I48.91 - UNSPECIFIED ATRIAL FIBRILLATION Status: Acute - Plan * f/u card plan to mx afib * placement when ready for discharge * continue current mx, pt/ot
[2017-05-21] MEDS ORDERED: Acetaminophen 325 MG TAB PO PRN (17:27)
--- NOTE | 2017-05-21 19:00 | RAD ---
FRONTAL VIEW CHEST: Indication: Fever. Comparison: 09-06-14 FINDINGS: No consolidation, effusion, or pneumothorax. Prior left subclavian venous catheter has been removed. Cardiomediastinal silhouette is stable. IMPRESSION: No focal consolidation. POS: NAOMIE
[2017-05-21] MEDS: cefTRIAXone\\ROCEPHIN 1 GM, Syringe 0.4 ML in Sterile Water 9.6 ML SLOW IVP SCH (19:17)
[2017-05-21] MEDS: Atorvastatin Calcium 40 MG TAB PO SCH (19:56)
--- NOTE | 2017-05-21 20:11 | ULT ---
RIGHT UPPER EXTREMITY DOPPLER VENOUS ULTRASOUND: Indication: Erythremia, edema. FINDINGS: There is appropriate compressibility and flow within the imaged deep vein system of the right upper extremity. IMPRESSION: No DVT. POS: NAOMIE
--- NOTE | 2017-05-22 08:19 | PRG ---
DATE OF SERVICE: 05/21/2017 HISTORY OF PRESENT ILLNESS: Mr. Shelley status is unchanged. He continues to have difficulty with sp eech. He did have right-sided upper extremity edema from recent IV. PHYSICAL EXAMINATION: VITAL SIGNS: Blood pressure 144/63, pulse 70, temperature 98.6. LUNGS: Clear to auscultation. CARDIAC: Regular rate and rhythm. ABDOMEN: Soft, nontender. EXTREMITIES: No edema except for edema and erythema present to the right forearm. IMPRESSION: 1. Cerebrovascular accident. 2. Previous history of atrial fibrillation, status post Watchman device. RECOMMENDATIONS: At this point, I do not feel the need to proceed with a ASHLEY to assess the Watchman . He will need long-term anticoagulation therapy. Unless there is a contraindication to anticoagul ation therapy (I discussed this with his son. He does not recall any contraindication). I would th en revisit and reassess the Watchman. Upper extremity duplex will also be performed to assess the r ight upper extremity for DVT.
[2017-05-22] MEDS: Aspirin 81 mg Enteric Coated Tablet PO SCH (09:07)
[2017-05-22] MEDS: Enoxaparin Sodium 100 MG/ML SYRINGE SC SCH (09:08)
--- NOTE | 2017-05-22 10:25 | PRG ---
DATE OF SERVICE: 05/22/2017 Mr. Shelley status is unchanged. He continues to have difficulty with speech. He is more alert today than yesterday. PHYSICAL EXAMINATION: VITAL SIGNS: Blood pressure 154/60, pulse 72, temperature 97.9. LUNGS: Clear to auscultation. HEART: Regular rate and rhythm. ABDOMEN: Soft, nontender, nondistended. EXTREMITIES: No edema. IMPRESSION: 1. Recent stroke. 2. Paroxysmal atrial fibrillation. RECOMMENDATIONS: 1. Continue anticoagulation therapy. 2. Once the patient is taking p.o. and has passed his swallowing test, would change IV amiodarone t o p.o. amiodarone. 3. Rehab.
--- NOTE | 2017-05-22 10:57 | PDOC.PN ---
- Subjective Encounter Start Date: 05/22/17 Encounter Start Time: 13:02 doing little better eating well can for sentences depressed no n/v - Objective MAR Reviewed: Yes Vital Signs & Weight: Vital Signs (12 hours) Temp Pulse Resp BP Pulse Ox 05/22/17 07:57 97.9 F 73 18 154/67 H 97 05/22/17 07:55 97.9 F 73 18 05/22/17 04:24 98.7 F 78 18 147/60 H 96 05/22/17 00:00 98.9 F 82 18 149/60 H 95 Weight Admit Weight 230 lb 9.656 oz Weight 231 lb 6.4 oz Most Recent Monitor Data Heart Rate from ECG 92 NIBP 153/76 NIBP BP-Mean 93 Respiration from ECG 19 SpO2 96 I&O: 05/21/17 05/22/17 05/23/17 06:59 06:59 06:59 Intake Total 200 930 Balance 200 930 Result Diagrams: 05/21/17 04:58 05/22/17 11:10 Additional Labs: Accuchecks 05/22/17 05/21/17 05:22 17:23 POC Glucose 145 H 134 H Phys Exam - Physical Examination Constitutional: NAD HEENT: PERRLA Neck: no JVD Respiratory: no wheezing Cardiovascular: irregular Gastrointestinal: non-tender Musculoskeletal: pulses present rt hemiparesis Psychiatric: A&O x 3 Dx/Plan (1) Idiopathic ischemic cerebrovascular accident (CVA) in adult Code(s): I63.9 - CEREBRAL INFARCTION, UNSPECIFIED Status: Acute (2) Diabetes mellitus Code(s): E11.9 - TYPE 2 DIABETES MELLITUS WITHOUT COMPLICATIONS Status: Acute (3) Tobacco use Code(s): Z72.0 - TOBACCO USE Status: Acute (4) Dysphagia Code(s): R13.10 - DYSPHAGIA, UNSPECIFIED Status: Resolved (5) Hyperlipidemia Code(s): E78.5 - HYPERLIPIDEMIA, UNSPECIFIED Status: Chronic (6) Hypertension Code(s): I10 - ESSENTIAL (PRIMARY) HYPERTENSION Status: Chronic (7) Afib Code(s): I48.91 - UNSPECIFIED ATRIAL FIBRILLATION Status: Acute Comment: on lovenox po anticoag per cardiology (8) Fever Code(s): R50.9 - FEVER, UNSPECIFIED Status: Acute Comment: cxr shows no pna f/u ua will d/c abx if urine is clean - Plan * heart still not controlled, still afib, on lovenox * card switched amio to po * f/u card rec's for oral anticoag * case mx to help with placement
[2017-05-22 12:25] LABS: Anion Gap 13 mmol/L (10-20); BUN (Urea Nitrogen) 22 mg/dL (8.4-25.7); Calc. Creatinine Clearance 95 mL/min (70-130); Calcium 9.5 mg/dL (7.8-10.44); Carbon Dioxide 24 mmol/L (23-31); Chloride 102 mmol/L (98-107); Estimated GFR-MDRD 70
[2017-05-22] MEDS: Apixaban 5 MG TAB PO SCH (21:19)
[2017-05-22] MEDS: Atorvastatin Calcium 40 MG TAB PO SCH (21:19)
[2017-05-22] MEDS: cefTRIAXone\\ROCEPHIN 1 GM, Syringe 0.4 ML in Sterile Water 9.6 ML SLOW IVP SCH (21:20)
[2017-05-22 22:22] LABS: Bilirubin Small (Negative); Glucose, Urine (Dipstick) Negative (Negative); Ketone, Urine Negative (Negative); Nitrite Negative (Negative); Protein, Urine (Dipstick) 30 mg/dL (Neg-Trace)
[2017-05-22 22:24] LABS: Bacteria/HPF None Seen HPF (None Seen); Hyaline Casts/LPF 0-3 HYALINE CAST LPF (0-3 Hyaline); Squamous Epithelial None Seen HPF (0-3); WBC/HPF 0-3 HPF (0-3)
[2017-05-22 22:40] LABS: Blood, Urine Negative (Negative); RBC/HPF 0-3 HPF (0-3)
[2017-05-23 04:53] LABS: #Eosinphils 0.2 thou/uL (0.0-0.7); #Lymphocytes 1.5 thou/uL (1.20-3.40); #Monocytes 1.1 thou/uL (0.11-0.59); #Neutrophils 10.3 thou/uL (1.40-6.50); %Basophils 0.2 % (0.0-1.0); %Eosinophils 1.3 % (0.0-10.0); %Lymphocytes 11.8 % (21.0-51.0); %Monocytes 8.1 % (0.0-10.0); Hematocrit 47.4 % (42.0-52.0); Mean Platelet Volume 9.1 fL (7.4-10.4); Red Blood Cell (RBC) Count 5.12 mill/uL (4.70-6.10); White Blood Cell (WBC) Count 13.1 thou/uL (4.8-10.8)
[2017-05-23] MEDS: Aspirin 81 mg Enteric Coated Tablet PO SCH (09:02)
[2017-05-23] MEDS: Apixaban 5 MG TAB PO SCH ×2 (09:02→20:51)
[2017-05-23 11:22] VITALS: BMI 31.1
--- NOTE | 2017-05-23 12:03 | PDOC.PN ---
- Subjective Encounter Start Date: 05/23/17 Encounter Start Time: 08:00 Pt seen for followup re: ischemic CVA. Denies chest pain, shortness of breath, fevers or chills. No nausea or vomiting. - Objective MAR Reviewed: Yes Vital Signs & Weight: Vital Signs (12 hours) Temp Pulse Resp BP Pulse Ox 05/23/17 11:38 97.6 F 87 20 121/73 98 05/23/17 07:35 97.9 F 97 20 122/80 93 L 05/23/17 07:17 106/62 05/23/17 03:28 97.6 F 113 H 28 H 96 Weight Admit Weight 230 lb 9.656 oz Weight 223 lb Most Recent Monitor Data Heart Rate from ECG 92 NIBP 153/76 NIBP BP-Mean 93 Respiration from ECG 19 SpO2 96 I&O: 05/22/17 05/23/17 05/24/17 06:59 06:59 06:59 Intake Total 930 610 Balance 930 610 Result Diagrams: 05/25/17 04:25 05/25/17 04:25 Additional Labs: Accuchecks 05/22/17 17:31 POC Glucose 98 EKG Reviewed by me: Yes (Tele: spencer chen/clary) Phys Exam - Physical Examination Constitutional: NAD HEENT: moist MMs, oral pharynx no lesions Neck: supple Respiratory: clear to auscultation bilateral Cardiovascular: irregular Gastrointestinal: soft, non-tender Musculoskeletal: pulses present Power 0/5 RUE and RLE, 5/5 in LUE and LLE Psychiatric: normal affect Dx/Plan (1) Ischemic cerebrovascular accident (CVA) Code(s): I63.9 - CEREBRAL INFARCTION, UNSPECIFIED Status: Acute (2) Afib Code(s): I48.91 - UNSPECIFIED ATRIAL FIBRILLATION Status: Acute Comment: on lovenox po anticoag per cardiology (3) Hyperlipidemia Code(s): E78.5 - HYPERLIPIDEMIA, UNSPECIFIED Status: Acute - Plan PT/OT, out of bed/ambulate * . Continue accuchecks, insulin sliding scale. Continue apixaban, amiodarone. Ambulate pt. Needs discharge planning. Review of Systems - Review of Systems Constitutional: negative: Fever, Chills, Sweats, Weakness, Malaise Respiratory: negative: Cough, Dry, Shortness of Breath, Hemoptysis, SOB with Excertion, Pleuritic Pain, Sputum, Wheezing Cardiovascular: negative: Chest Pain, Palpitations, Orthopnea, Paroxysmal Noc. Dyspnea, Edema, Light Headedness - Medications/Allergies Allergies/Adverse Reactions: Allergies Allergy/AdvReac Type Severity Reaction Status Date / Time No Known Drug Allergies Allergy Verified 05/17/17 05:01 Medications: Current Medications Acetaminophen (Tylenol) 650 mg PO Q6H PRN PRN Reason: .FEVER Last Admin: 05/21/17 17:58 Dose: 650 mg Amiodarone HCl (Cordarone) 400 mg PO BID [facility] Last Admin: 05/23/17 09:02 Dose: 400 mg Apixaban (Eliquis) 5 mg PO BID [facility] Last Admin: 05/23/17 09:02 Dose: 5 mg Aspirin (Ecotrin) 81 mg PO DAILY [facility] Last Admin: 05/23/17 09:02 Dose: 81 mg Atorvastatin Calcium (Lipitor) 40 mg PO HS [facility] Last Admin: 05/22/17 21:19 Dose: 40 mg Dextrose/Water (Dextrose 50%) 25 gm SLOW IVP PRN PRN PRN Reason: Hypoglycemia Diltiazem HCl (Cardizem) 30 mg PO Q6HR [facility] Last Admin: 05/23/17 05:24 Dose: 30 mg Glucagon (Glucagon) 1 mg IM PRN PRN PRN Reason: Hypoglycemia Dextrose/Water (D5w) 1,000 mls @ 0 mls/hr IV .Q0M PRN; As Directed PRN Reason: Hypoglycemia Ceftriaxone Sodium 1 gm/ (Syringe 0.4 ml/ Sterile Water) 10 mls @ 120 mls/hr SLOW IVP Q24HR [facility] Last Admin: 05/22/17 21:20 Dose: 10 mls Insulin Human Lispro (Humalog) 0 units SC .MILD SLIDING SCALE PRN PRN Reason: Mild Correctional Scale Labetalol HCl (Normodyne) 20 mg SLOW IVP Q1H PRN PRN Reason: BP > 220/110 Last Admin: 05/17/17 05:18 Dose: 20 mg Sodium Chloride (Flush - Normal Saline) 10 ml IVF Q12HR [facility] Last Admin: 05/23/17 09:02 Dose: 10 ml Sodium Chloride (Flush - Normal Saline) 10 ml IVF PRN PRN PRN Reason: Saline Flush
[2017-05-23] MEDS: cefTRIAXone\\ROCEPHIN 1 GM, Syringe 0.4 ML in Sterile Water 9.6 ML SLOW IVP SCH (17:56)
--- NOTE | 2017-05-23 19:38 | PRG ---
DATE OF SERVICE: 05/23/2017 SUBJECTIVE: Mr. Shelley' status is unchanged. He did go into atrial fibrillation and with what appea rs to be flutter type rhythm. OBJECTIVE: VITAL SIGNS: Blood pressure 137/70, pulse 87, temperature 97.6. LUNGS: Clear to auscultation. HEART: Regular rate and rhythm. ABDOMEN: Soft, nontender, nondistended. EXTREMITIES: No edema. NEUROLOGIC: Findings unchanged. IMRRESSION: 1. Paroxysmal atrial fibrillation. RECOMMENDATIONS: 1. Decrease amiodarone 200 mg per day, two. Consult EP given recent atrial flutter although likely a conservative therapy due to recent stroke, but may have insight on Watchman noted in the past. 2. Eliquis has been added at 5 mg p.o. b.i.d.
[2017-05-23] MEDS: Atorvastatin Calcium 40 MG TAB PO SCH (20:52)
[2017-05-24] MEDS: Aspirin 81 mg Enteric Coated Tablet PO SCH (09:25)
[2017-05-24] MEDS: Apixaban 5 MG TAB PO SCH ×2 (09:26→20:25)
--- NOTE | 2017-05-24 14:28 | DIS ---
DATE OF ADMISSION: 05/17/2017 DATE OF DISCHARGE: 05/24/2017 PRIMARY CARE PHYSICIAN: None. DISCHARGE DIAGNOSES: 1. Ischemic cerebrovascular accident. 2. Atrial fibrillation. 3. Infection, suspected. CONDITION OF PATIENT AT THE TIME OF DISCHARGE: Stable. I assessed Mr. Shelley on the day of discharg e. He denies any chest pain or shortness of breath. Vital signs are stable. S1 and S2 are heard, regular. Lungs are clear to auscultation bilaterally. DISCHARGE MEDICATIONS: Tylenol 650 mg every 6 hours as needed, amiodarone 400 mg daily, apixaban 5 mg 2 times a day, aspirin 81 mg daily, Lipitor 40 mg at bedtime, Cardizem-CD 120 mg every 24 hours, and ceftriaxone 1 gram slowly every 24 hours, to be discontinued when blood cultures are negative in the final report. INVESTIGATIONS DURING THIS HOSPITALIZATION: 1. CT scan of the brain on 05/17/2017, which showed a well-demarcated area of decreased attenuation in the left parietooccipital lobe, likely related to an area of infarction, which may be more subac upper [place] in nature. 2. 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 He also had like ly recent infarct in the left occipital lobe region. 3. A 2D echocardiogram on 05/17/2017 showing left ventricular ejection fraction of 60% to 65%, grad e 1/3 diastolic dysfunction, mildly dilated left atrium, mild mitral regurgitation, and mild tricusp id regurgitation. 4. Right upper extremity Doppler venous ultrasound, which did not reveal any DVT on 05/21/2017. Laboratory investigations, which include fasting lipid profile, showing triglycerides 153, cholester ol 217, LDL cholesterol 156, HDL cholesterol 30, TSH 1.4579. On 05/22/2017, he had sodium 135, pota ssium 3.6, creatinine 1.04. On 05/23/2017, he had white count 13,100, hemoglobin 15.5, and platelet count 195,000. Venous blood cultures drawn on 05/21/2017 did not show any growth at 48 hours in th e preliminary report; final report is pending. Urinalysis on 05/22/2017, which showed protein and s mall amount of bilirubin, but was otherwise negative. HOSPITAL COURSE: Mr. Shelley is a pleasant 72-year-old gentleman, who was admitted to [facility] on 05/17/2017 for right-sided weakness and difficulty speaking. He was administe red TPA and admitted to the Intensive Care Unit, was subsequently transferred out to the stroke unit . He was seen by Neurology Service, Dr. Salinas. He was also seen by Cardiology Service, Dr. Kendell herrera, for atrial fibrillation. He has been started on amiodarone during this hospitalization. He was evaluated by therapy services. He is being discharged to [facility] for furt her management. He was started on ceftriaxone for fevers. Blood cultures so far are negative. Once the final blood cultures are negative, ceftriaxone can be discontinued. DISCHARGE DESTINATION: [facility]. TOTAL AMOUNT OF TIME SPENT COORDINATING THIS DISCHARGE: 33 minutes.
[2017-05-24] MEDS: cefTRIAXone\\ROCEPHIN 1 GM, Syringe 0.4 ML in Sterile Water 9.6 ML SLOW IVP SCH (18:27)
--- NOTE | 2017-05-24 20:19 | PDOC.PN ---
- Subjective Encounter Start Date: 05/24/17 Encounter Start Time: 20:17 Pt seen for followup re: ischemic CVA. Denies chest pain, shortness of breath, fevers or chills. - Objective MAR Reviewed: Yes Vital Signs & Weight: Vital Signs (12 hours) Temp Pulse Pulse Pulse Resp BP BP 05/24/17 17:26 81 05/24/17 16:00 99.0 F 81 20 05/24/17 12:00 97.5 F L 80 20 05/24/17 11:45 82 79 138/64 147/65 H 05/24/17 08:59 97.5 F L 78 20 BP Pulse Ox 05/24/17 17:26 05/24/17 16:00 111/76 95 05/24/17 12:00 147/53 H 99 05/24/17 11:45 05/24/17 08:59 99 Weight Admit Weight 230 lb 9.656 oz Weight 221 lb 12.8 oz Most Recent Monitor Data Heart Rate from ECG 92 NIBP 153/76 NIBP BP-Mean 93 Respiration from ECG 19 SpO2 96 I&O: 05/23/17 05/24/17 05/25/17 06:59 06:59 06:59 Intake Total 610 10 630 Balance 610 10 630 Result Diagrams: 05/23/17 04:22 05/22/17 11:10 Additional Labs: Accuchecks 05/24/17 05/24/17 17:30 05:18 POC Glucose 145 H 158 H EKG Reviewed by me: Yes (Tele: NSR) Phys Exam - Physical Examination Constitutional: NAD HEENT: moist MMs Neck: supple Respiratory: clear to auscultation bilateral Cardiovascular: RRR Gastrointestinal: soft, non-tender R weakness Psychiatric: normal affect Skin: no rash Dx/Plan (1) Ischemic cerebrovascular accident (CVA) Code(s): I63.9 - CEREBRAL INFARCTION, UNSPECIFIED Status: Acute (2) Afib Code(s): I48.91 - UNSPECIFIED ATRIAL FIBRILLATION Status: Acute Comment: on lovenox po anticoag per cardiology (3) Hyperlipidemia Code(s): E78.5 - HYPERLIPIDEMIA, UNSPECIFIED Status: Acute - Plan PT/OT, out of bed/ambulate * . Rehab reportedly could not accept pt today, plan for discharge tomorrow. Continue anticoagulation, amiodarone. Review of Systems - Review of Systems Cardiovascular: negative: Chest Pain, Palpitations, Orthopnea, Paroxysmal Noc. Dyspnea, Edema, Light Headedness, Other Gastrointestinal: negative: Nausea, Vomiting, Abdominal Pain, Diarrhea, Constipation, Melena, Hematochezia Neurological: Weakness - Medications/Allergies Allergies/Adverse Reactions: Allergies Allergy/AdvReac Type Severity Reaction Status Date / Time No Known Drug Allergies Allergy Verified 05/17/17 05:01 Medications: Current Medications Acetaminophen (Tylenol) 650 mg PO Q6H PRN PRN Reason: .FEVER Last Admin: 05/21/17 17:58 Dose: 650 mg Amiodarone HCl (Cordarone) 400 mg PO DAILY [facility] Last Admin: 05/24/17 09:25 Dose: 400 mg Apixaban (Eliquis) 5 mg PO BID [facility] Last Admin: 05/24/17 09:26 Dose: 5 mg Aspirin (Ecotrin) 81 mg PO DAILY [facility] Last Admin: 05/24/17 09:25 Dose: 81 mg Atorvastatin Calcium (Lipitor) 40 mg PO HS [facility] Last Admin: 05/23/17 20:52 Dose: 40 mg Dextrose/Water (Dextrose 50%) 25 gm SLOW IVP PRN PRN PRN Reason: Hypoglycemia Diltiazem HCl (Cardizem Cd) 120 mg PO Q24H [facility] Last Admin: 05/24/17 17:26 Dose: 120 mg Glucagon (Glucagon) 1 mg IM PRN PRN PRN Reason: Hypoglycemia Dextrose/Water (D5w) 1,000 mls @ 0 mls/hr IV .Q0M PRN; As Directed PRN Reason: Hypoglycemia Ceftriaxone Sodium 1 gm/ (Syringe 0.4 ml/ Sterile Water) 10 mls @ 120 mls/hr SLOW IVP Q24HR [facility] Last Admin: 05/24/17 18:27 Dose: 10 mls Insulin Human Lispro (Humalog) 0 units SC .MILD SLIDING SCALE PRN PRN Reason: Mild Correctional Scale Labetalol HCl (Normodyne) 20 mg SLOW IVP Q1H PRN PRN Reason: BP > 220/110 Last Admin: 05/17/17 05:18 Dose: 20 mg Sodium Chloride (Flush - Normal Saline) 10 ml IVF Q12HR [facility] Last Admin: 05/24/17 09:26 Dose: 10 ml Sodium Chloride (Flush - Normal Saline) 10 ml IVF PRN PRN PRN Reason: Saline Flush
[2017-05-24] MEDS: Atorvastatin Calcium 40 MG TAB PO SCH (20:25)
[2017-05-25 05:12] LABS: Hematocrit 42.9 % (42.0-52.0)
[2017-05-25] MEDS: Apixaban 5 MG TAB PO SCH (08:58)
[2017-05-25] MEDS: Aspirin 81 mg Enteric Coated Tablet PO SCH (08:58)
[2017-05-25 10:46] LABS: White Blood Cell (WBC) Count 11.1 thou/uL (4.8-10.8)
[2017-05-25 11:57] VITALS: BP 127/62; TEMP 97.2
--- NOTE | 2017-05-25 12:02 | CON ---
DATE OF CONSULTATION: 05/24/2017 REFERRING PHYSICIAN: Dr. Starkey I am seeing Mr. 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 His problems are: 1. 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 A. CT angio reveals proximal left common carotid artery occlusion as well as occluded left internal carotid artery and also 50% right carotid artery narrowing. 2. Chronic atrial fibrillation. 3. History of premature ventricular contractions. 4. 2D echo from 05/17/2017 reveals LVEF 60/65%, mild MR and TR, mild left atrial enlargement. 5. Coronary artery risk factors. A. Hypertension and diabetes. 6. History of Wachman device placement on 12/09/2014 with subsequent ASHLEY was negative for a leak. ALLERGIES: None noted. MEDICATIONS AT ADMISSION: Include aspirin, labetalol, sodium chloride, Lovenox, diltiazem 30 q.6h., Tylenol. Amiodarone 400 mg twice a day, Diltiazem 120 mg daily. SUBJECTIVE: Mr. Shelley is a somewhat of a poor historian. He still has some degree of aphasia. Mos t of the history is obtained from the chart. He is a gentleman presented on 05/17/2017 with new sym ptoms of left hemispheric stroke. CT scan demonstrated a complete left carotid artery occlusion. O f note, this was the site of a prior left endarterectomy repair. He had symptoms over the weekend i ncluding irritability, speech difficulties, visual problems. He was in sinus rhythm initially, but later developed atrial fibrillation, which was treated with IV then p.o. amiodarone. He still has r esidual symptoms of hemiparesis and aphasia. He denies chest pain, no PND or orthopnea and no bleed ing issues. No fever, chills or cough. REVIEW OF SYSTEMS: The rest of the 12 point system otherwise unremarkable. PAST MEDICAL HISTORY: As above. He has a history of left lung partial dissection due to cancer and lung cancer and also left carotid endarterectomy. SOCIAL HISTORY: He is a current smoker. Denies ETOH or drug use. FAMILY HISTORY: Noncontributory. OBJECTIVE DATA: VITAL SIGNS: Blood pressure 149/68, heart rate 70, respirations 18, temperature 97.8 degrees Fahren heit. GENERAL: Alert and oriented man in no apparent distress. NECK: Supple. Jugular veins are not distended. CHEST: Coarse without crackles. CARDIAC: Heart sounds are regular rate and rhythm. No murmur or gallop. ABDOMEN: Benign. Bowel sounds positive. EXTREMITIES: Lower extremities without edema, clubbing or cyanosis. NEUROLOGIC: Right-sided hemiparesis and aphasia. SKIN: Without rash. MUSCULOSKELETAL: No joint swelling or deformities. Scars of left carotid endarterectomy and a lung resection scars are noted in the chest, well healed. DATABASE: The EKG is reviewed with atrial fibrillation, sinus rhythm initially went into atrial fib rillation. On 05/17/2017 he had 102 beats per minute, QT 456. LABORATORY DATA: White count 13.1, hemoglobin 15.5, platelet count 195. Sodium 135, potassium 3.6, BUN 22, creatinine 1.04, INR is 1.0. ASSESSMENT AND PLAN: Mr. Shelley is a 72-year-old man who has a history of paroxysmal atrial fibrilla tion, previously maintained on Multaq. He also had carotid artery disease, undergoing a left caroti d endarterectomy in the past. He also has had a Watchman device placed for left atrium appendage oc clusion which was well-seated on a subsequent ASHLEY and hence his oral anticoagulation. Now, lisa golden is presenting with a large left hemispheric cerebrovascular accident with right hemiparesis and pa rtial aphasia. The CT scan is suggestive of extensive thrombotic occlusion of the left common carot id artery including intracranial branches. He has had sinus rhythm initially, but later developed atrial fibrillation with rapid rate, requirin g IV amiodarone. He is now transitioned to p.o. amiodarone taper. So far, I agree with management. The exact etiology of stroke is likely a combination of vascular d isease, but thrombotic etiology also cannot be completely ruled out. It is reasonable to consider a nticoagulation timing, should be reasonable to resume anticoagulation, although timing should be dir ected by Neurology. Now he is almost a week out of his original stroke. He still has a residual st enosis on the left internal carotid artery as well. Regarding his atrial fibrillation, I agree with more aggressive management at least for the time ghislaine cassidy to help his recovery, then likely will be able to transition back to Multaq. He is really not ve ry symptomatic during his atrial fibrillation episodes. He is a poor candidate for invasive EP inte rvention like ablation. We will follow with you. Thank you for the consult.
--- NOTE | 2017-05-25 12:23 | DIS ---
PRIMARY CARE PHYSICIAN: None. DATE OF ADMISSION: 05/17/2017 DATE OF DISCHARGE: 05/25/2017 NOTE: Please note that a discharge summary was dictated on 05/24/2017. The patient was not dischar ged to rehab that day because they could not accept him in the evening. He is being discharged on 07/25/2016. His ceftriaxone was stopped. His blood cultures will still need to be followed from [facility]. In addition, his amiodarone dose was changed. DISCHARGE DIAGNOSES: 1. Ischemic cerebrovascular accident. 2. Atrial fibrillation. CONDITION OF PATIENT AT THE TIME OF DISCHARGE: Stable. I assessed Mr. Shelley on 05/25/2017. He denies any chest pain or shortness of breath. Vital signs a re stable. S1 and S2 are heard, regular. Lungs are clear to auscultation bilaterally. DISCHARGE MEDICATIONS: Tylenol 650 mg every 6 hours as needed, amiodarone 200 mg 3 times a day for 1 week, then 200 mg 2 times a day for 2 weeks, then 200 mg daily, apixaban 5 mg 2 times a day, aspir in 81 mg daily, Lipitor 40 mg at bedtime, Cardizem 120 mg q.24h., metformin 500 mg 2 times a day. In addition, the patient will need insulin sliding scale at [facility]. HOSPITAL COURSE: Mr. Shelley is a pleasant 72-year-old gentleman who was admitted to [facility] on 05/17/2017 for right-sided weakness and difficulty. He received t-PA and was a dmitted to the Intensive Care Unit. He was subsequently transferred to the stroke floor. He was se en by the Neurology Service, Dr. Salinas, Cardiology Service, Dr. Pritchard. He had atrial fibrillat ion and has been started on amiodarone and apixaban. INVESTIGATIONS DURING THIS HOSPITALIZATION: Was summarized on the discharge note dictated on 2016. His blood cultures are negative so far. He has remained afebrile over the last 3 days, therefore, a ntibiotics are being stopped. His blood cultures will need to be followed up when he is at [facility]. [facility] TOTAL AMOUNT OF TIME SPENT COORDINATING THIS DISCHARGE: 38 minutes.
--- NOTE | 2017-06-05 15:21 | PQF ---
MARSHA HUFF ALLEN [id number] DATE: 06/05/17 ATTN: GAY TOLEDO MD Please exercise your independent, professional judgment in responding to the clarification form. Clinical indicators are provided on the bottom of this form for your review PLEASE SPECIFY IF thrombotic occlusion of carotid and/or posterior artery WAS CAUSE OF INFARCTION. Please check appropriate box(s): [ ] Cerebral Infarction: [ ] Cerebral[ ] Pre-Cerebral [ ] Thrombosis [ ] Embolism [ ] Unspecified occlusion or stenosis [ ] Venous Thrombosis [ ] Other Cerebral Infarction Laterality:[ ] Right[ ] Left[ ] Bilateral [ ] Pre-Cerebral Artery:[ ] Vertebral[ ] Carotid[ ] Other Pre- Cerebral Artery [ ] Cerebral Artery:[ ] Middle[ ] Anterior[ ] Posterior [ ] Cerebellar[ ] Other Cerebral Artery[ ] Unspecified Cerebral Artery [ ] Hemorrhage (non-traumatic):Please specify Artery: [ ] Subarachnoid [ ] Intracerebral [ ] Extradural [ ] Subdural: [ ] Acute [ ] Subacute [ ] Chronic [ ] Cerebral artery occlusion without infarction [ ] TIA [ ] Other diagnosis [ ] Unable to determine In addition, please specify: Present on Admission (POA): [ ] Yes [ ] No [ ] Unable to determine For continuity of documentation, please document condition throughout progress notes and discharge summary. Thank You. CLINICAL INDICATORS - SIGNS / SYMPTOMS / LABS Consult Rpt 05/17 stated pt developed occlusion in left internal carotid artery likely 2/2 thrombosis. Consult Rpt 05/[address] scan is suggestive of extensive thrombotic occlusion of the left common carotid artery including intracranial branches. Exact etiology of stroke is likely a combination of vascular disease, but thrombotic etiology also cannot be completely ruled out. DS 05/25 listed ischemic CVA and that pt was administered TPA. (This form is maintained as a part of the permanent medical record) 2014 [employer]. All Rights Reserved Yeimi [email or web address] [phone] ALBERTA
== END 2017-05-25 12:50 | DRG 65 ==
LOC: ERS 02:03 → CCU 03:15 → 2SE 14:46
PROVIDERS: ADMIT Internal Medicine Addiction Medicine; ATTEND Internal Medicine Addiction Medicine
DX: I63.332 Cerebral infarction due to thrombosis of left posterior cerebral artery (principal); G81.91 Hemiplegia, unspecified affecting right dominant side; I48.0 Paroxysmal atrial fibrillation; E11.9 Type 2 diabetes mellitus without complications; I10 Essential (primary) hypertension; R47.81 Slurred speech; H53.9 Unspecified visual disturbance; I65.22 Occlusion and stenosis of left carotid artery; F17.210 Nicotine dependence, cigarettes, uncomplicated; Z85.118 Personal history of other malignant neoplasm of bronchus and lung; Z90.2 Acquired absence of lung [part of]; E66.9 Obesity, unspecified; Z68.30 Body mass index [BMI] 30.0-30.9, adult; E78.5 Hyperlipidemia, unspecified
CPT/HCPCS: 36415; 36416; 70450; 70496; 70498; 71010; 80048; 80053; 80061; 80076; 80306; 80307; 81001; 81003; 82553; 82565; 83036; 83735; 84132; 84443; 84484; 85014; 85018; 85025; 85048; 85049; 85610; 85730; 87040; 93005; 93010; 93306; 99406; A4216; G8981-GP-CK; G8982-GP-CI; G8987-GO-CM; G8988-GO-CK; G8996-GN-CM; G8997-GN-CK; J0282; J0696; J1650; J7050; J7070

== ENCOUNTER 2018-10-28 10:28 | Emergency (ER) | payer MEDICARE, BC ==
[~2018-10-28 10:28] MED LIST: ISOVUE-370 76%-LOCM 1 ML ONE
[2018-10-28 10:48] LABS: #Basophils 0.1 thou/uL (0.0-0.2); #Eosinphils 0.4 thou/uL (0.0-0.7); #Lymphocytes 2.4 thou/uL (1.20-3.40); #Monocytes 0.6 thou/uL (0.11-0.59); #Neutrophils 4.1 thou/uL (1.40-6.50); %Eosinophils 5.1 % (0.0-10.0); %Lymphocytes 31.5 % (21.0-51.0); %Monocytes 7.8 % (0.0-10.0); %Neutrophils 54.4 % (42.0-75.0); Mean Corpuscular Hemoglobin 30.3 pg (27.0-31.0); Mean Corpuscular Volume 94.7 fL (78.0-98.0); Mean Platelet Volume 8.3 fL (7.4-10.4); Platelet Count 187 thou/uL (130-400); RBC Distribution Width 12.4 % (11.5-14.5); Red Blood Cell (RBC) Count 4.29 mill/uL (4.70-6.10); White Blood Cell (WBC) Count 7.5 thou/uL (4.8-10.8)
[2018-10-28 10:56] LABS: INR-International Normal Ratio 1.1; PTT 26.6 SEC (22.9-36.1)
[2018-10-28 11:01] LABS: ALT (SGPT) 20 U/L (8-55); AST (SGOT) 13 U/L (5-34); Albumin 3.8 g/dL (3.4-4.8); Alkaline Phosphatase 85 U/L (40-150); Anion Gap 11 mmol/L (10-20); BUN (Urea Nitrogen) 16 mg/dL (8.4-25.7); Bilirubin, Total 0.4 mg/dL (0.2-1.2); CK (CPK) 27 U/L (30-200); Calc. Creatinine Clearance 0 mL/min (70-130); Calcium 8.8 mg/dL (7.8-10.44); Carbon Dioxide 22 mmol/L (23-31); Chloride 110 mmol/L (98-107); Estimated GFR-MDRD 44; Globulin 2.5 g/dL (2.4-3.5); Glucose 100 mg/dL (83-110); Potassium 4.3 mmol/L (3.5-5.1); Protein, Total 6.3 g/dL (5.8-8.1); Sodium 139 mmol/L (136-145)
--- NOTE | 2018-10-28 11:08 | CT ---
CT BRAIN PERFORMED WITHOUT CONTRAST ENHANCEMENT: Date: 10/28/18 HISTORY: Patient unable to speak. History of a CVA 16 months ago. COMPARISON: 07/23/17 study. FINDINGS: Generalized ventricular and sulcal prominence. Encephalomalacia change is seen in the left posterior frontoparietal cortex and occipital cortex consistent with areas of old infarct. No bleed or mass eff ect. No signs for acute infarct. IMPRESSION: No acute intracranial abnormalities. Encephalomalacia change related to old left-sided infarct. Findings telephoned to Dr. Casanova at 1045 hours. CODE CR. POS: [facility]
--- NOTE | 2018-10-28 11:13 | CT ---
CTA carotid and intracranial CTA. Contrast-enhanced CTA of the neck and intracranial CTA performed. 2-D and 3-D reconstruction images p erformed on an independent 3-D workstation. HISTORY: Patient with slurred speech stroke alert. Contrast-enhanced CTA carotid arteries demonstrates complete occlusion of the left common carotid art nate with no evidence of flow seen within it. This originates in the proximal most aspect of the left CCA extending into the left CCA. No flow seen in the left ICA. There is apparent retrograde flow into the left ECA via right-sided collaterals in the right ECA. The right common carotid artery is patent. Atherosclerotic plaque resulting in approximately 40% sten osis seen in the origin of the right ICA. This is a short segment of atherosclerotic plaque in the proximal right ICA (superior inferior length is approximately 1.8 cm.). Flow seen in the right ICA. G ood flow seen intracranially. Some atherosclerotic plaque seen in the right cavernous ICA. Flow crosses the midline via the anterior communicating artery filling the left MIGUEL ANGEL and MCA vessels. Normal flow seen in the right MIGUEL ANGEL and MCA vessels. The right and left vertebral arteries are patent. Normal flow seen in the right P1 and distal posteri or cerebral arterial vessels. There is flow seen in the left P1 and P2 segments. The patient's had a large left posterior middle cerebral area of infarction which has undergone extensive encephalomala cic changes since the previous comparison CTA from 05/17/2017. IMPRESSION: Old left parietal and posterior temporal area of infarction. Findings called to Dr. Casanova at 11:01 AM on 10/28/2018. Code CR
[2018-10-28 11:40] LABS: Bilirubin Negative (Negative); Blood, Urine Negative (Negative); Clarity CLEAR (Clear); Glucose, Urine (Dipstick) Negative (Negative); Leukocyte Negative (Negative); Nitrite Negative (Negative); Protein, Urine (Dipstick) Negative (Neg-Trace); Specific Gravity, Urine 1.026 (1.002-1.036)
== END 2018-10-28 12:54 | disposition home or self-care (01) ==
LOC: ERS 10:28
DX: R41.82 Altered mental status, unspecified (principal); E11.9 Type 2 diabetes mellitus without complications; F17.210 Nicotine dependence, cigarettes, uncomplicated
CPT/HCPCS: 36416; 70450; 70496; 70498; 80053; 81003; 82550; 84484; 85025; 85610; 85730; 93005; 94760; Q9966

== ENCOUNTER 2018-11-26 12:02 | Observation (INO) | payer MEDICARE, BC ==
[2018-11-26 12:40] LABS: #Basophils 0.1 thou/uL (0.0-0.2); #Eosinphils 0.4 thou/uL (0.0-0.7); #Lymphocytes 1.8 thou/uL (1.20-3.40); #Monocytes 0.5 thou/uL (0.11-0.59); %Basophils 1.1 % (0.0-1.0); %Eosinophils 4.6 % (0.0-10.0); %Lymphocytes 23.5 % (21.0-51.0); %Monocytes 6.7 % (0.0-10.0); %Neutrophils 64.1 % (42.0-75.0); Hemoglobin 13.7 g/dL (14.0-18.0); Mean Corpuscular HGB CONC 32.4 g/dL (32.0-36.0); Mean Corpuscular Hemoglobin 30.4 pg (27.0-31.0); Mean Corpuscular Volume 93.8 fL (78.0-98.0); Mean Platelet Volume 8.2 fL (7.4-10.4); Platelet Count 201 thou/uL (130-400); RBC Distribution Width 12.8 % (11.5-14.5); White Blood Cell (WBC) Count 7.8 thou/uL (4.8-10.8)
--- NOTE | 2018-11-26 12:55 | RAD ---
EXAM: CHEST ONE VIEW HISTORY: Low blood pressure. Lethargy. COMPARISON: 01/26/2018 FINDINGS: The cardiac silhouette and pulmonary vasculature is within normal limits. Minimal linear scarring harley lady atelectasis is present in the left midlung zone. Postsurgical changes overlying the left hilar region are again noted. An atrial occlusion device overlies the expected location of the left atrial appendage and unchanged compared to prior study. There is prominent right glenohumeral osteoarthropathy. There is stable irregularity involving the left acromion. Surgical clips again over lie the left neck. IMPRESSION: No acute cardiopulmonary process.
[2018-11-26 13:07] LABS: ALT (SGPT) 27 U/L (8-55); AST (SGOT) 16 U/L (5-34); Albumin 4.3 g/dL (3.4-4.8); Alkaline Phosphatase 94 U/L (40-150); Anion Gap 18 mmol/L (10-20); BUN (Urea Nitrogen) 19 mg/dL (8.4-25.7); Bilirubin, Total 0.6 mg/dL (0.2-1.2); Calc. Creatinine Clearance 0 mL/min (70-130); Calcium 9.6 mg/dL (7.8-10.44); Carbon Dioxide 19 mmol/L (23-31); Chloride 103 mmol/L (98-107); Estimated GFR-MDRD 28; Globulin 2.5 g/dL (2.4-3.5); Glucose 175 mg/dL (83-110); Potassium 4.3 mmol/L (3.5-5.1); Protein, Total 6.8 g/dL (5.8-8.1); Sodium 136 mmol/L (136-145)
--- NOTE | 2018-11-26 13:35 | CT ---
CT BRAIN WITHOUT CONTRAST: HISTORY: Fatigue, hypotension COMPARISON: 10/28/2018 FINDINGS: Encephalomalacia in the left posterior frontoparietal and occipital cortex consistent with old infarc tion is stable. The ventricular size is unchanged and the basilar cisterns are patent. No evidence of acute infarct, hemorrhage, midline shift or abnormal extra-axial fluid collections is seen. The bony calvarium is intact. There is mild mucosal disease in the paranasal sinuses. IMPRESSION: Stable exam. No CT evidence of acute intracranial process.
[2018-11-26] MEDS ORDERED: Acetaminophen 650 MG Suppository PR PRN (17:28)
[2018-11-26] MEDS ORDERED: Senokot S 8.6-50 MG TAB PO PRN (17:28)
[2018-11-26] MEDS ORDERED: Ondansetron PF 4 MG/2 ML Vial IVP PRN (17:28)
[2018-11-26] MEDS ORDERED: Guaifenesin DM 100-10/5 ML UDCUP PO PRN (17:28)
[2018-11-26] MEDS ORDERED: Ondansetron ODT 4 MG TAB PO PRN (17:28)
[2018-11-26] MEDS ORDERED: Acetaminophen 325 MG TAB PO PRN (17:28)
[2018-11-26] MEDS ORDERED: Dextrose 50% Abboject 50 ML SYRINGE SLOW IVP PRN (17:46)
[2018-11-26] MEDS ORDERED: Dextrose 5% in Water 1,000 ML IV PRN (17:46)
[2018-11-26] MEDS ORDERED: HumaLOG 300 UNITS/3 ML VIAL SC PRN ×2 (17:46)
[2018-11-26 17:53] LABS: Bilirubin Negative (Negative); Blood, Urine Negative (Negative); Clarity CLEAR (Clear); Glucose, Urine (Dipstick) Negative (Negative); Leukocyte Negative (Negative); Nitrite Negative (Negative); Protein, Urine (Dipstick) Negative (Neg-Trace); Specific Gravity, Urine 1.007 (1.002-1.036); Urobilinogen 0.2 mg/dL (0.2-1.0)
[2018-11-26 17:54] LABS: Lactic Acid 1.4 mmol/L (0.5-2.2)
[2018-11-26 17:57] LABS: Bacteria/HPF None Seen HPF (None Seen); Hyaline Casts/LPF 4-6 HYALINE CAST LPF (0-3 Hyaline); Pathc Cast-AUWi Flag 0.67 (0-2.49); RBC/HPF 0-3 HPF (0-3); Squamous Epithelial 0-3 HPF (0-3); WBC/HPF 0-3 HPF (0-3)
[2018-11-26 19:46] VITALS: BMI 27.1
[2018-11-26] MEDS: Sodium Chloride 0.9% 1,000 ML IV SCH (20:48)
[2018-11-26] MEDS ORDERED: Famotidine 20 MG TAB PO SCH (21:00)
--- NOTE | 2018-11-26 23:25 | HP ---
PRIMARY CARE PHYSICIAN: Robyn Madera DO. CHIEF COMPLAINT: Low blood pressures. HISTORY OF PRESENT ILLNESS: This is a 73-year-old white male brought in by EMS for hypotension after walking with therapist this morning. Blood pressure was reportedly in the 80s. On EMS arriving, it was 97/47 and by the time the patient got to the emergency room after being given some IV fluids, his blood pressure was up to 112/61. He was never tachycardic. The patient has had a stroke and is not really able to define any recent symptoms or problems. His spouse, who is no longer present, reportedly told the ER physician that he was fatigued over the last 2 to 3 days, but is not eating and drinking normally. In the ER, his blood work did show an increased creatinine compared to his baseline, so he is being put in observation and given IV fluids. He is not yet urinated, so we do not have a urinalysis yet on the patient. PAST MEDICAL HISTORY: Medical history obtained from the chart and reviewed with the patient. He does have difficulty communicating, but can confirm things and if given enough time can give most history points. 1. Diabetes mellitus type 2, on oral hypoglycemics. 2. Previous lung cancer, status post surgery. 3. Previous ischemic strokes 2 times with right-sided deficits and dysarthria. 4. Atrial fibrillation. 5. Hypertension. PAST SURGICAL HISTORY: 1. Partial left lung resection due to cancer. 2. Carotid endarterectomy. 3. Watchman procedure in 2017. SOCIAL HISTORY: The patient is a previous smoker, quit smoking about a year and a half ago. No alcohol or illicit drug use. He is . FAMILY HISTORY: He denies any knowledge of family history of strokes or other significant medical issues. ALLERGIES: NO KNOWN DRUG ALLERGIES. CURRENT MEDICATIONS: The patient does not have his medicines with him and cannot remember any of them. REVIEW OF SYSTEMS: CONSTITUTIONAL: No fevers, no chills. No generalized weakness, just fatigue. EYES: No vision changes. ENT: No congestion, drainage, or sore throat. CARDIOVASCULAR: No chest pain, no palpitations or racing heart. PULMONARY: No coughing, wheezing, or shortness of breath. GASTROINTESTINAL: No abdominal pain. No nausea or vomiting. No diarrhea or constipation. GENITOURINARY: No dysuria or hematuria. He reports he has not urinated yet this morning. He typically urinates after eating meals. MUSCULOSKELETAL: No muscle aches or joint pain. SKIN: No rashes or other lesions he has noted. NEUROLOGIC: See HPI. He has no new neurologic deficits that he has noted. PHYSICAL EXAMINATION: VITAL SIGNS: Blood pressure 106/53, pulse 62, respirations 20, temperature 97.7, O2 saturation 94% on room air. GENERAL: This is a well-developed, well-nourished white male, in no acute distress. HEENT: Pupils equal, round, and reactive to light. Oropharynx clear without lesions, erythema, or exudate. NECK: Supple. No lymphadenopathy. No thyroid nodules or enlargement. HEART: Regular rate and rhythm. No murmurs, rubs, or gallops. LUNGS: Clear to auscultation bilaterally. No wheezes, crackles, or rhonchi. ABDOMEN: Soft, nontender to palpation. Normoactive bowel sounds. No hepatosplenomegaly or other masses. EXTREMITIES: No clubbing, cyanosis, or edema. The patient does have contractures of his right hand and arm against his body. SKIN: No rashes or lesions. NEUROLOGIC: The patient has significant dysarthria, though he is able to make himself understood to keep enough time. No significant facial droop at this time. He has profound weakness of the right upper extremity with contracture against his body. His right lower extremity is very weak, especially in the distal strength. He is able to move the hip a little bit and to raise the legs off the bed and he gets very short of breath. LABORATORY DATA: CBC grossly within normal limits. Complete metabolic panel, notable for carbon dioxide of 19, creatinine of 2.31, BUN of 19, glucose of 175. The rest was normal. His most recent creatinine was a month ago in the ER, was 1.57. Of note, he did have an IV contrast load at that time for CTA of the head for possible recurrent stroke. Prior to that, last creatinines were in 2017 after his stroke, he had initially been about 1.0 to 1.2. He did bump up to 2.5 at one point in the midst of his hospitalizations for a stroke, uncertain etiology it was down to 1.55 in his last check in 2017, which was consistent with his lab last month. Lactic acid was elevated 2.6. Recheck is pending in the emergency room. IMAGING STUDIES: CT of the brain showed encephalomalacia from the previous 2 areas of stroke on his left side of his brain, unchanged from previous CTs. Chest x-ray showed no evidence of acute cardiopulmonary process. ASSESSMENT: 1. Hypotension, likely related to volume depletion. We will see if this has any recurrence after fluid resuscitation overnight. 2. Odnso-pd-pdsymhj renal failure. This is most likely due to volume depletion, although the BUN is actually not elevated. Other possibility is contrast nephropathy from his contrast load last month. We will see how the creatinine responds to volume. He got a liter with EMS, and an another liter in the emergency room here. We will run normal saline overnight and recheck his creatinine in the morning. 3. Diabetes mellitus type 2. We will need to try to obtain the patient's current medications. For now, we will do fingerstick blood sugars before meals and at bedtime and light insulin sliding scale and put him on diabetic diet. 4. History of hypertension, uncertain of the patient's home medications, but we will hold him anyway due to his recent low blood pressures and we will monitor overnight. 5. Gastrointestinal prophylaxis. Put the patient on Pepcid twice a day. 6. History of atrial fibrillation, currently in sinus rhythm. The patient was previously on Eliquis in 2017. I do not have a current med list, I do not know if any of this is changed. We will need to obtain his current medications and restart anticoagulants if he is still on them.. 7. Code status. I did discuss this with the patient. He is a full code, though he would not like to be on prolonged life support. Should he be incapacitated, his medical decision maker will be his , her name is Fauzia Shelley. Job ID: [id number]
[2018-11-27 07:49] LABS: #Eosinphils 0.4 thou/uL (0.0-0.7); #Lymphocytes 1.8 thou/uL (1.20-3.40); #Monocytes 0.4 thou/uL (0.11-0.59); #Neutrophils 3.3 thou/uL (1.40-6.50); %Basophils 0.8 % (0.0-1.0); %Eosinophils 6.2 % (0.0-10.0); %Lymphocytes 30.4 % (21.0-51.0); %Monocytes 7.2 % (0.0-10.0); %Neutrophils 55.4 % (42.0-75.0); Hemoglobin 11.9 g/dL (14.0-18.0); Mean Corpuscular HGB CONC 31.5 g/dL (32.0-36.0); Mean Corpuscular Hemoglobin 29.5 pg (27.0-31.0); Mean Corpuscular Volume 93.4 fL (78.0-98.0); Mean Platelet Volume 8.1 fL (7.4-10.4); Platelet Count 175 thou/uL (130-400); RBC Distribution Width 12.4 % (11.5-14.5); Red Blood Cell (RBC) Count 4.03 mill/uL (4.70-6.10); White Blood Cell (WBC) Count 5.9 thou/uL (4.8-10.8)
[2018-11-27 08:07] LABS: Anion Gap 11 mmol/L (10-20); BUN (Urea Nitrogen) 15 mg/dL (8.4-25.7); Calc. Creatinine Clearance 47 mL/min (70-130); Calcium 9.4 mg/dL (7.8-10.44); Carbon Dioxide 24 mmol/L (23-31); Chloride 110 mmol/L (98-107); Estimated GFR-MDRD 38; Glucose 87 mg/dL (83-110); Potassium 4.2 mmol/L (3.5-5.1); Sodium 141 mmol/L (136-145)
--- NOTE | 2018-11-27 09:22 | PDOC.PN ---
- Subjective Encounter Start Date: 11/27/18 Encounter Start Time: 10:50 Subjective: Patient feeling fine. BP normal after fluids. Eager to go home. 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 MAR Reviewed: Yes Vital Signs & Weight: Vital Signs (12 hours) Temp Pulse Resp BP Pulse Ox 11/27/18 08:13 98.3 F 65 20 146/77 H 92 L 11/27/18 04:33 97.8 F 61 16 111/65 93 L 11/27/18 00:00 97.8 F 61 16 103/72 93 L Weight Weight 194 lb 9.6 oz I&O: 11/26/18 11/27/18 11/28/18 06:59 06:59 06:59 Intake Total 240 Balance 240 Result Diagrams: 11/27/18 07:26 11/27/18 07:26 Additional Labs: Accuchecks 11/27/18 11/26/18 04:29 19:45 POC Glucose 93 102 Phys Exam - Physical Examination Constitutional: NAD HEENT: moist MMs Respiratory: no wheezing, no rales, no rhonchi Cardiovascular: RRR, no significant murmur Gastrointestinal: soft, non-tender, positive bowel sounds right upper and lower ext weakness Psychiatric: normal affect, A&O x 3 Dx/Plan (1) Hypotension Status: Resolved (2) Acute renal failure superimposed on stage 3 chronic kidney disease Code(s): N17.9 - ACUTE KIDNEY FAILURE, UNSPECIFIED; N18.3 - CHRONIC KIDNEY DISEASE, STAGE 3 (MODERATE) Status: Acute Comment: improved with IV fluids overnight (3) Diabetes mellitus type 2 in nonobese Code(s): E11.9 - TYPE 2 DIABETES MELLITUS WITHOUT COMPLICATIONS Status: Chronic (4) Paroxysmal atrial fibrillation Code(s): I48.0 - PAROXYSMAL ATRIAL FIBRILLATION Status: Chronic - Plan cont current plan of care d/c home today, encouraged increased fluid intake at home * . - Discharge Day Encounter end time: 11:10
[2018-11-27] MEDS: Sodium Chloride 0.9% 1,000 ML IV SCH (09:52)
[2018-11-27 13:51] VITALS: BP 116/64; TEMP 98.1
[2018-11-27] MEDS ORDERED: metFORMIN 500 MG TAB PO SCH (17:00)
[2018-11-27] MEDS ORDERED: Apixaban 5 MG TAB PO SCH (21:00)
[2018-11-27] MEDS ORDERED: Famotidine 20 MG TAB PO SCH (21:00)
[2018-11-28] MEDS ORDERED: Levothyroxine Sodium 88 MCG TAB PO SCH ×2 (06:00→09:00)
--- NOTE | 2018-11-28 07:02 | DIS ---
DATE OF ADMISSION: 11/26/2018 DATE OF DISCHARGE: 11/27/2018 PRIMARY CARE PHYSICIAN: Dr. Robyn Madera. REASON FOR ADMISSION: Hypotension and acute on chronic renal failure. DIAGNOSES AT DISCHARGE: 1. Hypotension, resolved. 2. Acute on chronic renal failure, resolved, back to baseline. 3. Diabetes mellitus type 2. 4. Paroxysmal atrial fibrillation. 5. Previous stroke with right hemiplegia. PROCEDURES: CT of the brain showing no acute intracranial process, just the old infarcts. CONSULTATIONS: None. SUMMARY OF HOSPITAL COURSE: This is a 73-year-old white male with a previous stroke with problems with weakness in his right arm and right leg. He does do some walking at home with his therapist. Therapist went this morning and after walking noted that he seemed weak and his blood pressures were drop into the 80s. On EMS arrival, it was in the 90s and the patient got bolus of IV fluids and then blood pressure was in the 112 in the emergency room. He was never tachycardic. No other symptoms, just a little fatigued for the last 2 to 3 days. Eating and drinking normally; however, his states that he needs to drink more fluids and he usually refuses when she encourages him to drink water. The patient was noted to have a creatinine elevated above his baseline up to 2.3, previously 1.5. The patient was given a liter of fluid in the emergency room and then given fluids overnight. This morning, he felt back to his baseline. His creatinine is down to 1.76, and so he is being discharged home. DISCHARGE MANAGEMENT: Discharged home. FOLLOWUP: Follow up with Dr. Madera in 7 days. ACTIVITY: As tolerated. DIET: Diabetic diet. The patient is to resume his previous home health physical therapy. DISCHARGE MEDICATIONS: Continue all home medications. 1. Amiodarone 200 mg daily. 2. Eliquis 5 mg twice a day. 3. Diltiazem CD 120 mg daily. 4. Famotidine 20 mg daily. 5. Finasteride 5 mg daily. 6. Levsin one tablet 3 times a day as needed. 7. Levothyroxine 88 mcg daily. 8. Metformin 500 mg twice a day. 9. Atorvastatin 20 mg daily. 10. Lisinopril 10 mg daily. 11. Tamsulosin 0.4 mg daily. Job ID: [id number]
[2018-11-28] MEDS ORDERED: Amiodarone 200 MG TAB PO SCH (09:00)
[2018-11-28] MEDS ORDERED: Finasteride 5 MG TAB PO SCH (09:00)
--- NOTE | 2018-11-30 11:27 | EKG ---
Test Reason : Blood Pressure : / mmHG Vent. Rate : 067 BPM Atrial Rate : 067 BPM P-R Int : 216 ms QRS Dur : 078 ms QT Int : 358 ms P-R-T Axes : 055 -16 056 degrees QTc Int : 378 ms Sinus rhythm with 1st degree A-V block Septal infarct , age undetermined -old Inferior infarct , age undetermined -old Abnormal ECG Confirmed by JEFFERSON TSANG DO ([id number]), digital editor SNEHAL FROST ([id number]) on 11/30/2018 11:27:31 AM Referred By: Confirmed By:JEFFERSON TSANG DO
== END 2018-11-27 14:05 | disposition home or self-care (01) ==
LOC: ERS 12:02 → ERHOLD 15:20 → T4-A 19:35
PROVIDERS: ADMIT Internal Medicine; ATTEND Internal Medicine
DX: I95.9 Hypotension, unspecified (principal); I12.9 Hypertensive chronic kidney disease with stage 1 through stage 4 chronic kidney disease, or unspecified chronic kidney disease; N18.9 Chronic kidney disease, unspecified; E11.22 Type 2 diabetes mellitus with diabetic chronic kidney disease; N17.9 Acute kidney failure, unspecified; I48.0 Paroxysmal atrial fibrillation; I69.30 Unspecified sequelae of cerebral infarction; G81.91 Hemiplegia, unspecified affecting right dominant side; Z79.84 Long term (current) use of oral hypoglycemic drugs; Z87.891 Personal history of nicotine dependence
CPT/HCPCS: 70450; 71045; 80048; 80053; 81001; 82962 ×2; 83605; 83880; 84484; 85025 ×2; 93005; 94760; 96360; 99285; G0378 ×2; 36415; 36416